=== PATIENT | male | born 1965 | race Caucasian/White ===

== ENCOUNTER 2020-01-08 12:40 | Inpatient (IN) ==
[2020-01-08] MEDS ORDERED: DUONEB 0.5 MG/3 MG (3 mL) NEB SCH (14:00)
[2020-01-08] MEDS ORDERED: REMDESIVIR (INVESTIGATIONAL DRUG GS-5734) 200 MG in NS 250 ML IV 250 ML IV SCH (14:00)
[2020-01-08] MEDS ORDERED: PULMICORT NEB TX 0.5 MG NEB ONE (15:38)
[2020-01-08] MEDS ORDERED: DUONEB 0.5 MG/3 MG (3 mL) NEB ONE (15:38)
[2020-01-08] MEDS ORDERED: MUCOMYST (RESPIRATORY USE ONLY) ONE (15:38)
[2020-01-08] MEDS: MUCOMYST 20% 200 MG/ML NEB SCH ×2 (16:40→20:40)
[2020-01-08] MEDS: PULMICORT NEB TX 0.5 MG NEB SCH ×2 (16:40→20:40)
[2020-01-08 16:48] LABS: ABG BASE EXCESS 0.8 mmol/L (-2.0-2.0)
[2020-01-08 16:49] LABS: ABG ALLEN TEST POS
[2020-01-08] MEDS ORDERED: NS 1/2 1000 ML IV 1,000 ML IV ONE (16:53)
[2020-01-08] MEDS: VSL#3 PO SCH (16:56)
[2020-01-08] MEDS: LEVAQUIN PREMIX IV 750 MG 750 MG/150 ML BAG IV SCH (16:57)
[2020-01-08 16:58] LABS: BASOPHILS % (AUTO) 0.2 % (0.2-1.0); EOSINOPHILS % (AUTO) 0.4 % (0.9-2.9); HEMATOCRIT 49.8 % (42.0-54.0); HEMOGLOBIN 16.6 g/dL (13.5-18.0); LYMPHOCYTES # (AUTO) 1.1 X10^3/uL (1.3-2.9); LYMPHOCYTES % (AUTO) 9.5 % (21.0-51.0); MEAN CORPUSCULAR HEMOGLOBIN 27.8 pg (27.0-34.0); MEAN CORPUSCULAR HGB CONC 33.4 g/dL (33.0-35.0); MEAN CORPUSCULAR VOLUME 83.4 fL (80.0-100.0); MEAN PLATELET VOLUME 8.2 fL (7.4-11.0); MONOCYTES # (AUTO) 1.2 x10^3/uL (0.3-0.8); MONOCYTES % (AUTO) 10.6 % (0.0-13.0); NEUTROPHILS # (AUTO) 9.1 x10^3/uL (2.2-4.8); NEUTROPHILS % (AUTO) 79.3 % (42.0-75.0); PLATELET COUNT 250 X10^3/uL (150.0-450.0); RED BLOOD COUNT 5.97 X10^6/uL (4.7-6.0); RED CELL DISTRIBUTION WIDTH 14.5 % (11.6-16.5); WHITE BLOOD COUNT 11.4 X10^3/uL (3.6-10.0)
[2020-01-08] MEDS: NS 1/2 1000 ML IV 1,000 ML IV SCH (16:58)
[2020-01-08] MEDS: TESSALON PERLES PO SCH ×2 (16:59→21:00)
[2020-01-08] MEDS: ROBITUSSIN DM PO SCH ×3 (16:59→21:00)
[2020-01-08 17:11] LABS: ALANINE AMINOTRANSFERASE 27 Units/L (12-78); ALBUMIN 3.2 g/dL (3.4-5.0); ALKALINE PHOSPHATASE 54 Units/L (46-116); ASPARTATE AMINO TRANSFERASE 13 Units/L (15-37); BLOOD UREA NITROGEN 24 mg/dL (7-18); CALCIUM 9.2 mg/dL (8.5-10.1); CARBON DIOXIDE 26.9 mmol/L (21-32); CHLORIDE 100 mmol/L (98-107); COR CA(FOR HYPOALB) 9.8 mg/dL (8.5-10.1); COR NA(FOR HYPERGLY) 142 mmol/L (136-145); CREATININE 1.23 mg/dL (0.70-1.30); SODIUM 137 mmol/L (136-145); TOTAL PROTEIN 7.8 g/dL (6.4-8.2); eGFR NON BLACK RACES > 60 (>60)
[2020-01-08 17:54] VITALS: BMI 37.8
[2020-01-08] MEDS ORDERED: HumuLIN R ONE (20:27)
[2020-01-08] MEDS: DUONEB 0.5 MG/3 MG (3 mL) NEB SCH (20:40)
[2020-01-08] MEDS ORDERED: SOLU-Medrol 40 MG VIAL ONE (20:43)
[2020-01-08] MEDS: TUSSIONEX PENNKINETIC SUSP PO SCH (20:49)
[2020-01-08] MEDS: HumuLIN R SUBCUT PRN (20:51)
[2020-01-08] MEDS: SOLU-Medrol 40 MG VIAL IVP SCH (21:00)
[2020-01-09] MEDS ORDERED: NS 1/2 1000 ML IV 1,000 ML IV ONE (03:32)
[2020-01-09] MEDS: NS 1/2 1000 ML IV 1,000 ML IV SCH ×2 (04:57→19:06)
[2020-01-09 05:01] LABS: BASOPHILS % (AUTO) 0.2 % (0.2-1.0); EOSINOPHILS % (AUTO) 0.2 % (0.9-2.9); HEMATOCRIT 46.3 % (42.0-54.0); HEMOGLOBIN 15.3 g/dL (13.5-18.0); LYMPHOCYTES # (AUTO) 0.7 X10^3/uL (1.3-2.9); LYMPHOCYTES % (AUTO) 7.6 % (21.0-51.0); MEAN CORPUSCULAR HGB CONC 33.1 g/dL (33.0-35.0); MEAN CORPUSCULAR VOLUME 84.6 fL (80.0-100.0); MEAN PLATELET VOLUME 8.1 fL (7.4-11.0); MONOCYTES # (AUTO) 0.3 x10^3/uL (0.3-0.8); MONOCYTES % (AUTO) 3.6 % (0.0-13.0); NEUTROPHILS # (AUTO) 8.4 x10^3/uL (2.2-4.8); NEUTROPHILS % (AUTO) 88.4 % (42.0-75.0); PLATELET COUNT 221 X10^3/uL (150.0-450.0); RED BLOOD COUNT 5.47 X10^6/uL (4.7-6.0); RED CELL DISTRIBUTION WIDTH 14.1 % (11.6-16.5); WHITE BLOOD COUNT 9.4 X10^3/uL (3.6-10.0)
[2020-01-09 05:09] LABS: ALANINE AMINOTRANSFERASE 23 Units/L (12-78); ALKALINE PHOSPHATASE 51 Units/L (46-116); ASPARTATE AMINO TRANSFERASE 11 Units/L (15-37); BLOOD UREA NITROGEN 21 mg/dL (7-18); CALCIUM 8.5 mg/dL (8.5-10.1); CARBON DIOXIDE 25.9 mmol/L (21-32); CHLORIDE 101 mmol/L (98-107); COR CA(FOR HYPOALB) 9.3 mg/dL (8.5-10.1); COR NA(FOR HYPERGLY) 141 mmol/L (136-145); CREATININE 1.18 mg/dL (0.70-1.30); SODIUM 134 mmol/L (136-145); TOTAL PROTEIN 7.3 g/dL (6.4-8.2); eGFR NON BLACK RACES > 60 (>60)
[2020-01-09] MEDS: TESSALON PERLES PO SCH ×3 (05:14→21:30)
[2020-01-09] MEDS: SOLU-Medrol 40 MG VIAL IVP SCH ×3 (05:14→21:30)
[2020-01-09] MEDS: HumuLIN R SUBCUT PRN ×4 (05:45→21:30)
--- NOTE | 2020-01-09 06:11 | RAD ---
HISTORYShortness of breathSTUDYChest AP [id number] heart is enlarged. No congestive heart failure is noted. The lungs are hypoinflated. Right perihilar infiltrate is unchanged. There is some subsegmental atelectasis peripherally in the right midlung. The left lung is clear. No pleural effusions are identified.IMPRESSIONCardiomegaly without congestive heart failureNo change right perihilar infiltrateNo change hypo inflationElectronically signed by: SONY LE (Jan 09, 2020 06:10:10)
[2020-01-09] MEDS: DUONEB 0.5 MG/3 MG (3 mL) NEB SCH ×4 (06:35→21:20)
[2020-01-09 06:55] LABS: ABG ALLEN TEST POS; ABG BASE EXCESS 0.5 mmol/L (-2.0-2.0); ABG HCO3 25.4 mmol/L (22-26)
[2020-01-09] MEDS ORDERED: GLUCOPHAGE ONE (09:06)
[2020-01-09] MEDS: MUCOMYST 20% 200 MG/ML NEB SCH ×2 (09:10→21:20)
[2020-01-09] MEDS: PULMICORT NEB TX 0.5 MG NEB SCH ×2 (09:10→21:20)
[2020-01-09] MEDS: VSL#3 PO SCH (09:15)
[2020-01-09] MEDS: COZAAR PO SCH (09:15)
[2020-01-09] MEDS: REMDESIVIR (INVESTIGATIONAL DRUG GS-5734) 100 MG in NS 250 ML IV 250 ML IV SCH (09:16)
[2020-01-09] MEDS: GLUCOPHAGE PO SCH (09:16)
[2020-01-09] MEDS: ROBITUSSIN DM PO SCH ×4 (09:16→21:30)
[2020-01-09] MEDS: LEVAQUIN PREMIX IV 750 MG 750 MG/150 ML BAG IV SCH (09:17)
[2020-01-09] MEDS: TUSSIONEX PENNKINETIC SUSP PO SCH ×2 (09:22→21:30)
--- NOTE | 2020-01-09 11:01 | DR.UPDATE ---
H&P Update History and Physical Update: History and Physical reviewed and patient examined. Changes noted: Yes with the following: IS A 54 YEAR OLD PATIENT OF ubigrate TORSTEN. SHE CONSULTED WITH US FOR DIRECT ADMISSION OF PATIENT DUE TO COVID POSITIVE, PERSISTENT FEVER, NON-PRODUCTIVE COUGH, SHORTNESS OF BREATH, FATIGUE, AND SINUS CONGESTION. SYMPTOMS STARTED APPROXIMATELY 8 DAYS PRIOR. OXYGEN SATURATIONS ON ROOM AIR IN THE OFFICE WERE 88%. AUSCULTATION OF LUNG MALONE REVEALED SCATTERED WHEEZING. HE WAS GIVEN A Z-PACK, LEVAQUIN 500MG PO DAILY, GUAIATUSSIN AC, A MEDROL DOSEPACK, FLOANSE, LEVALBUTEROL TX, AND AN ALBUTEROL INHALER ON 01/01/20. HE WAS ALSO GIVEN A ROCEPHIN, KENALOG, AND DEXAMETHASONE INJECTIONS IN THE OFFICE ON 01/01/20 AND AGAIN ON 01/07/20. HE ADMITS TO COMPLIANCE WITH MEDICATIONS, HOWEVER, SYMPTOMS CONTINUE TO WORSEN. HE WAS SENT FOR OUTPATIENT LABS AND CHEST XRAY ON 01/07/20. ABNORMAL LABS INCLUDED THE FOLLOWING: WBC 11.2, BUN 24, GLUCOSE 227, FERRITIN 733, LDH 228, CRP 134.30, TOTAL PROTEIN 8.3, ALBUMIN 3.2, GLOBULIN 5.1. CHEST XRAY REPORTED RIGHT MIDDLE LOBE PNEUMONIA. HE WAS ADMITTED TO THE HOSPITAL FOR PNEUMONIA DUE TO COVID-19 AND HYPOXIA. ON ARRIVAL TO THE HOSPITAL, VITALS WERE 98.3-72-20-94%RA-148/95. LABS WERE REPEATED. ABNORMAL LAB VALUES INCLUDE THE FOLLOWING: WBC 11.4, BUN 24, GLUCOSE 299, FERRITIN 718, CRP 63.10, ALBUMIN 3.2, GLOBULIN 4.6. ABG OBTAINED AND REVEALED: PH 7.470, PC02 33.0, P02 68, HC03 24, FIO2 21. BLOOD CULTURES WERE SET UP. HE WAS STARTED ON 1/2NS AT 75 ML/HR, LEVAQUIN 750MG IV DAILY, REMDESIVIR 200MG IV X 1 DOSE THEN 100MG IV DAILY, DUONEBS TID, PULMICORT NEBS BID, MUCOMYST IN NEB [place] BID, SOLU-MEDROL 80MG IV Q8H, HUMULIN R SLIDING SCALE, TUSSIONEX 5ML PO Q12H, ROBITUSSIN DM QID, AND HIS HOME MEDICATIONS WERE RESUMED. OTHERWISE, WE PLAN TO FOLLOW UP WITH AM LABS AND CONTINUE TO MONITOR. Prescription drug monitoring program results: PDMP reviewed and no concerns identified H&P Reviewed: Yes Patient was examined?: Yes
[2020-01-09] MEDS: LOVENOX INJ 40 MG SYR SC SCH (11:29)
[2020-01-09] MEDS ORDERED: SNACK - Diabetic Appropriate PO SCH (20:00)
[2020-01-09] MEDS: SNACK - Diabetic Appropriate PO SCH (20:20)
[2020-01-09] MEDS: LEVEMIR SC SCH (21:30)
[2020-01-09] MEDS: LIPITOR TAB 20 MG PO SCH (21:30)
[2020-01-10] MEDS: HumuLIN R SUBCUT PRN ×5 (00:39→21:45)
[2020-01-10] MEDS ORDERED: NS 1/2 1000 ML IV 1,000 ML IV ONE ×2 (00:46→18:05)
[2020-01-10] MEDS: NS 1/2 1000 ML IV 1,000 ML IV SCH ×4 (02:12→22:19)
--- NOTE | 2020-01-10 05:45 | RAD ---
[id number]/2020FINDINGSThe trachea is midline. The cardiac silhouette is unremarkable. Right perihilar opacity/infiltrates persist. Mild left basilar atelectasis/infiltra sarah. No pneumothorax.. The bony thorax is unremarkable.IMPRESSIONNo appreciable interval changeElectr onically signed by: Jenae Cruz (Jan 10, 2020 05:44:46)
[2020-01-10] MEDS: DUONEB 0.5 MG/3 MG (3 mL) NEB SCH ×3 (05:56→21:10)
[2020-01-10 06:05] LABS: ASPARTATE AMINO TRANSFERASE 9 Units/L (15-37); BLOOD UREA NITROGEN 22 mg/dL (7-18); CALCIUM 8.4 mg/dL (8.5-10.1); CARBON DIOXIDE 25.5 mmol/L (21-32); CHLORIDE 102 mmol/L (98-107); COR NA(FOR HYPERGLY) 143 mmol/L (136-145); CREATININE 1.11 mg/dL (0.70-1.30); SODIUM 136 mmol/L (136-145); eGFR NON BLACK RACES > 60 (>60)
[2020-01-10 06:06] LABS: ALANINE AMINOTRANSFERASE 21 Units/L (12-78); ALKALINE PHOSPHATASE 47 Units/L (46-116); COR CA(FOR HYPOALB) 9.2 mg/dL (8.5-10.1); TOTAL PROTEIN 6.9 g/dL (6.4-8.2)
[2020-01-10] MEDS: TESSALON PERLES PO SCH ×3 (06:06→22:15)
[2020-01-10] MEDS: SOLU-Medrol 40 MG VIAL IVP SCH ×3 (06:06→22:15)
[2020-01-10 06:14] LABS: BASOPHILS % (AUTO) 0.1 % (0.2-1.0); EOSINOPHILS % (AUTO) 0.1 % (0.9-2.9); HEMATOCRIT 44.1 % (42.0-54.0); LYMPHOCYTES # (AUTO) 0.8 X10^3/uL (1.3-2.9); LYMPHOCYTES % (AUTO) 7.4 % (21.0-51.0); MEAN CORPUSCULAR HEMOGLOBIN 28.2 pg (27.0-34.0); MEAN CORPUSCULAR VOLUME 83.1 fL (80.0-100.0); MEAN PLATELET VOLUME 8.3 fL (7.4-11.0); MONOCYTES # (AUTO) 0.9 x10^3/uL (0.3-0.8); MONOCYTES % (AUTO) 8.5 % (0.0-13.0); NEUTROPHILS % (AUTO) 83.9 % (42.0-75.0); PLATELET COUNT 232 X10^3/uL (150.0-450.0); RED BLOOD COUNT 5.31 X10^6/uL (4.7-6.0); RED CELL DISTRIBUTION WIDTH 14.1 % (11.6-16.5); WHITE BLOOD COUNT 10.8 X10^3/uL (3.6-10.0)
[2020-01-10] MEDS ORDERED: GLUCOPHAGE ONE (08:33)
[2020-01-10] MEDS: LEVAQUIN PREMIX IV 750 MG 750 MG/150 ML BAG IV SCH (08:43)
[2020-01-10] MEDS: REMDESIVIR (INVESTIGATIONAL DRUG GS-5734) 100 MG in NS 250 ML IV 250 ML IV SCH (08:44)
[2020-01-10] MEDS: LOVENOX INJ 40 MG SYR SC SCH (08:44)
[2020-01-10] MEDS: LEVEMIR SC SCH ×2 (08:44→21:45)
[2020-01-10] MEDS: COZAAR PO SCH (08:45)
[2020-01-10] MEDS: GLUCOPHAGE PO SCH (08:45)
[2020-01-10] MEDS: TUSSIONEX PENNKINETIC SUSP PO SCH ×2 (08:46→22:00)
[2020-01-10] MEDS: ROBITUSSIN DM PO SCH ×4 (08:46→22:14)
[2020-01-10] MEDS: VSL#3 PO SCH (08:46)
[2020-01-10] MEDS: PULMICORT NEB TX 0.5 MG NEB SCH ×2 (09:20→21:10)
[2020-01-10] MEDS: MUCOMYST 20% 200 MG/ML NEB SCH ×2 (14:05→21:10)
[2020-01-10] MEDS: SNACK - Diabetic Appropriate PO SCH (20:00)
[2020-01-10] MEDS: LIPITOR TAB 20 MG PO SCH (21:45)
[2020-01-11] MEDS ORDERED: NS 1/2 1000 ML IV 1,000 ML IV ONE (02:59)
[2020-01-11] MEDS: DUONEB 0.5 MG/3 MG (3 mL) NEB SCH (05:06)
[2020-01-11] MEDS: SOLU-Medrol 40 MG VIAL IVP SCH (05:45)
[2020-01-11] MEDS: TESSALON PERLES PO SCH (05:45)
[2020-01-11] MEDS: NS 1/2 1000 ML IV 1,000 ML IV SCH ×2 (06:00→12:41)
[2020-01-11] MEDS: HumuLIN R SUBCUT PRN ×2 (06:10→11:13)
--- NOTE | 2020-01-11 06:10 | RAD ---
HISTORYShortness of breathSTUDYChest AP [id number] heart is within normal limits in size. The camilo are normal. The lungs are well inflated. Right perihilar infiltrate is unchanged. The remainder of the lung staples are clear. No pleural effusions are identified. Bony thorax is unremarkable.IMPRESSIONNo change right perihilar infiltrateElectronically signed by: SONY LE (Jan 11, 2020 06:09:16)
[2020-01-11 06:11] LABS: ALANINE AMINOTRANSFERASE 24 Units/L (12-78); ALBUMIN 3.1 g/dL (3.4-5.0); ALKALINE PHOSPHATASE 47 Units/L (46-116); ASPARTATE AMINO TRANSFERASE 13 Units/L (15-37); BASOPHILS # (AUTO) 0.1 X10^3/uL (0.0-0.1); BASOPHILS % (AUTO) 0.6 % (0.2-1.0); BLOOD UREA NITROGEN 23 mg/dL (7-18); CALCIUM 8.3 mg/dL (8.5-10.1); CARBON DIOXIDE 26.1 mmol/L (21-32); CHLORIDE 102 mmol/L (98-107); COR NA(FOR HYPERGLY) 142 mmol/L (136-145); CREATININE 1.04 mg/dL (0.70-1.30); HEMATOCRIT 44.3 % (42.0-54.0); LYMPHOCYTES # (AUTO) 0.9 X10^3/uL (1.3-2.9); LYMPHOCYTES % (AUTO) 9.2 % (21.0-51.0); MEAN CORPUSCULAR HEMOGLOBIN 28.2 pg (27.0-34.0); MEAN CORPUSCULAR HGB CONC 33.8 g/dL (33.0-35.0); MEAN CORPUSCULAR VOLUME 83.6 fL (80.0-100.0); MEAN PLATELET VOLUME 8.2 fL (7.4-11.0); MONOCYTES # (AUTO) 0.7 x10^3/uL (0.3-0.8); MONOCYTES % (AUTO) 6.8 % (0.0-13.0); NEUTROPHILS % (AUTO) 83.4 % (42.0-75.0); PLATELET COUNT 206 X10^3/uL (150.0-450.0); RED CELL DISTRIBUTION WIDTH 14.1 % (11.6-16.5); SODIUM 136 mmol/L (136-145); TOTAL PROTEIN 6.9 g/dL (6.4-8.2); WHITE BLOOD COUNT 9.6 X10^3/uL (3.6-10.0); eGFR NON BLACK RACES > 60 (>60)
[2020-01-11] MEDS ORDERED: GLUCOPHAGE ONE (08:20)
[2020-01-11] MEDS: PULMICORT NEB TX 0.5 MG NEB SCH (08:26)
[2020-01-11] MEDS: VSL#3 PO SCH (08:30)
[2020-01-11] MEDS: REMDESIVIR (INVESTIGATIONAL DRUG GS-5734) 100 MG in NS 250 ML IV 250 ML IV SCH (08:30)
[2020-01-11] MEDS: LEVAQUIN PREMIX IV 750 MG 750 MG/150 ML BAG IV SCH (08:30)
[2020-01-11] MEDS: LEVEMIR SC SCH (08:30)
[2020-01-11] MEDS: TUSSIONEX PENNKINETIC SUSP PO SCH (08:31)
[2020-01-11] MEDS: GLUCOPHAGE PO SCH (08:31)
[2020-01-11] MEDS: COZAAR PO SCH (08:31)
[2020-01-11] MEDS: LOVENOX INJ 40 MG SYR SC SCH (08:32)
[2020-01-11] MEDS: ROBITUSSIN DM PO SCH (08:32)
--- NOTE | 2020-01-11 08:33 | PCM.PROG ---
Progress Note - Progress Note for Day of Date of Exam: 01/10/20 - Subjective Subjective: IS BEING TREATED FOR PNEUMONIA DUE TO COVID-19 AND HYPOXIA. TODAY, HE IS ALERT AND ORIENTED, LYING IN BED ON MORNING ROUNDS. HE CONTINUES WITH COMPLAINTS OF COUGH, SHORTNESS OF BREATH, AND NAUSEA TODAY. SHORTNESS OF BREATH IS WORSE ON EXERTION. HE REPORTS SLIGHT IMPROVEMENT IN SYMPTOMS THIS MORNING. HE HAS BEEN UTILIZING OXYGEN VIA NASAL CANNULA. ON EXAMINATION, HEART IS REGULAR IN RATE AND RHYTHM. BILATERAL LUNGS ARE NOTED WITH SCATTERED WHEEZING THROUGHOUT. ABDOMEN IS ROUND, SOFT, AND NON-TENDER WITH HYPERACTIVE BOWEL SOUNDS. HIS VITALS THIS MORNING ARE: 97.7-85-18-97%NC-140/88. LABS WERE OBTAINED. ABNORMAL LAB VALUES INCLUDE THE FOLLOWING: WBC 10.8, BUN 22, GLUCOSE 389, CALCIUM 8.4, FERRITIN 569, AST 9, CRP 23.10, ALBUMIN 3.0. BLOOD CULTURES ARE PENDING. A CHEST XRAY WAS OBTAINED AND REVEALED: No appreciable interval change. HE IS CURRENTLY RECEIVING 1/2NS AT 75 ML/HR, LEVAQUIN 750MG IV DAILY, REMDESIVIR 100MG IV DAILY, DUONEBS TID, PULMICORT NEBS BID, MUCOMYST IN NEB [place] BID, SOLU-MEDROL 80MG IV Q8H, HUMULIN R SLIDING SCALE, TUSSIONEX 5ML PO Q12H, ROBITUSSIN DM QID, AND HIS HOME MEDICATIONS WERE RESUMED. WE WILL CONTINUE WITH CURRENT PLAN OF CARE TODAY. OTHERWISE, WE WILL FOLLOW UP WITH AM LABS, CHEST XRAY, AND CONTINUE TO MONITOR. - Past Medical Family Social History Past Med/Fam/Surg Hx: No changes since H&P Allergies: Allergies Penicillins Allergy (Verified 01/08/20 16:39) - Review of Systems ROS: No change since H&P - Vital Signs and I&O's Vital Signs: Temperature 97.7 F Pulse Rate [Brachial] 70 Pulse Rate 92 Respiratory Rate 18 Blood Pressure [Left Arm] 143/80 O2 Sat by Pulse Oximetry 93 Intake and Output: Intake & Output 01/08/20 01/09/20 01/10/20 01/11/20 11:59 11:59 11:59 11:59 Intake Total 1899 / 1899 4183 / 4183 3817 / 3817 Balance 1899 / 1899 4183 / 4183 3817 / 3817 - Physical Exam Oriented: Normal Eyes: Normal Ear: Normal Nose: Normal Throat: Normal Respiratory: Generalized, Diminished, Wheezes Cardiovascular: Normal : Normal Auscultation: Bowel Sounds: Normal Palpation: Normal Tenderness: Normal Skin: Normal Musculoskeletal: Normal Psychiatric: Normal Mood Description: Calm Affect: Normal Speech Pattern: Clear, Appropriate - Laboratory and Diagnostics Result Diagrams: 01/11/20 05:03 01/11/20 05:03 Labs: 01/08/20 16:40 Blood Blood Culture - Preliminary 01/08/20 16:32 Blood Blood Culture - Preliminary Laboratory WBC 9.6 X10^3/uL (3.6-10.0) 01/11/20 05:03 RBC 5.30 X10^6/uL (4.7-6.0) 01/11/20 05:03 Hgb 15.0 g/dL (13.5-18.0) 01/11/20 05:03 Hct 44.3 % (42.0-54.0) 01/11/20 05:03 MCV 83.6 fL (80.0-100.0) 01/11/20 05:03 MCH 28.2 pg (27.0-34.0) 01/11/20 05:03 MCHC 33.8 g/dL (33.0-35.0) 01/11/20 05:03 RDW 14.1 % (11.6-16.5) 01/11/20 05:03 Plt Count 206 X10^3/uL (150.0-450.0) 01/11/20 05:03 MPV 8.2 fL (7.4-11.0) 01/11/20 05:03 Neut % (Auto) 83.4 % (42.0-75.0) H 01/11/20 05:03 Lymph % (Auto) 9.2 % (21.0-51.0) L 01/11/20 05:03 [place]ondera % (Auto) 6.8 % (0.0-13.0) 01/11/20 05:03 Eos % (Auto) 0.0 % (0.9-2.9) L 01/11/20 05:03 Baso % (Auto) 0.6 % (0.2-1.0) 01/11/20 05:03 Neut # (Auto) 8.0 x10^3/uL (2.2-4.8) H 01/11/20 05:03 Lymph # (Auto) 0.9 X10^3/uL (1.3-2.9) L 01/11/20 05:03 [place] # (Auto) 0.7 x10^3/uL (0.3-0.8) 01/11/20 05:03 Eos # (Auto) 0.0 x10^3/uL (0.0-0.2) 01/11/20 05:03 Baso # (Auto) 0.1 X10^3/uL (0.0-0.1) 01/11/20 05:03 Absolute Nucleated RBC 0.1 /100WBC 01/11/20 05:03 Sample Site Rrad 01/09/20 05:33 ABG pH 7.400 (7.35-7.45) 01/09/20 05:33 ABG pCO2 41.0 mmHg (35.0-45.0) 01/09/20 05:33 ABG pO2 85.0 mmHg (80.0-100.0) 01/09/20 05:33 ABG HCO3 25.4 mmol/L (22-26) 01/09/20 05:33 ABG O2 Saturation 96.0 % (90-100) 01/09/20 05:33 ABG Base Excess 0.5 mmol/L (-2.0-2.0) 01/09/20 05:33 Skyler Test Pos 01/09/20 05:33 A-a Gradient 63.0 mmHg 01/09/20 05:33 FiO2 28.0 01/09/20 05:33 Blood Gas Comments Fer abg well-mtf 01/09/20 05:33 Sodium 136 mmol/L (136-145) 01/11/20 05:03 Corrected Sodium 142 mmol/L (136-145) 01/11/20 05:03 Potassium 4.3 mmol/L (3.5-5.1) 01/11/20 05:03 Chloride 102 mmol/L (98-107) 01/11/20 05:03 Carbon Dioxide 26.1 mmol/L (21-32) 01/11/20 05:03 BUN 23 mg/dL (7-18) H 01/11/20 05:03 Creatinine 1.04 mg/dL (0.70-1.30) 01/11/20 05:03 Est GFR (MDRD) Af Amer > 60 (>60) 01/11/20 05:03 Est GFR (MDRD) Non-Af > 60 (>60) 01/11/20 05:03 Glucose 333 mg/dL (65-99) H 01/11/20 05:03 Calcium 8.3 mg/dL (8.5-10.1) L 01/11/20 05:03 Corrected Calcium 9.0 mg/dL (8.5-10.1) 01/11/20 05:03 Ferritin 568 ng/mL (26-388) H 01/11/20 05:03 Total Bilirubin 0.40 mg/dL (0.2-1.0) 01/11/20 05:03 AST 13 Units/L (15-37) L 01/11/20 05:03 ALT 24 Units/L (12-78) 01/11/20 05:03 Alkaline Phosphatase 47 Units/L (46-116) 01/11/20 05:03 C-Reactive Protein 12.10 mg/L (0-3.0) H 01/11/20 05:03 Total Protein 6.9 g/dL (6.4-8.2) 01/11/20 05:03 Albumin 3.1 g/dL (3.4-5.0) L 01/11/20 05:03 Globulin 3.8 g/dL (2.5-4.5) 01/11/20 05:03 Albumin/Globulin Ratio 0.8 Ratio (1.1-2.1) L 01/11/20 05:03 Blood Type A NEGATIVE 01/08/20 16:32
[2020-01-11] MEDS ORDERED: REMDESIVIR (INVESTIGATIONAL DRUG GS-5734) 100 MG in NS 250 ML IV 250 ML IV ONE (10:15)
[2020-01-11 12:42] VITALS: BP 131/72
== END 2020-01-11 14:45 | disposition home or self-care (01) | DRG 177 ==
LOC: MED/SURG 14:53
PROVIDERS: ADMIT Internal Medicine; ATTEND Internal Medicine
DX: U07.1 COVID-19; J12.89 Other viral pneumonia; R73.09 Other abnormal glucose; R09.02 Hypoxemia